=== PATIENT | male | born 1990 | race Caucasian/White ===

== ENCOUNTER 2016-06-16 07:34 | Emergency (ER) | payer OTHER ==
[2016-06-16 08:12] LABS: BASO % 0.2 % (0.2-1.2); EOS # 0.2 10_X3_uL (0.0-0.5); EOS % 1.1 % (0.8-7.0); GRAN # 8.9 10_X3_uL (1.8-5.4); GRAN % 65.4 % (34.0-67.9); HEMATOCRIT 41.8 % (40-51); HEMOGLOBIN 14.3 g/dL (13.7-17.5); LYMPH # 3.4 10_X3_uL (1.3-3.6); LYMPH % 24.6 % (21.8-53.1); MEAN CORPUSCULAR HEMOGLOBIN 29.7 pg (27.0-33.0); MEAN CORPUSCULAR HGB CONC 34.2 g/dL (32.0-36.0); MEAN CORPUSCULAR VOLUME 86.7 fL (79-92); MONO # 1.2 10_X3_uL (0.3-0.8); MONO % 8.7 % (5.3-12.2); PLATELET COUNT 244 x10_3/uL (163-337); RED BLOOD COUNT 4.82 x10_6/uL (4.6-6.1); RED CELL DISTRIBUTION WIDTH 12.5 % (11.6-14.4); WHITE BLOOD COUNT 13.6 x10_3/uL (4.2-9.1)
[2016-06-16 08:23] LABS: ALBUMIN 4.6 gm/dL (3.4-5.0); ALKALINE PHOSPHATASE 69 U/L (50-136); ALT/SGPT 20 U/L (7.53-40.17); AST/SGOT 25 U/L (6.66-35.34); BILIRUBIN,TOTAL 0.51 mg/dL (0.0-1.0); BLOOD UREA NITROGEN 16 mg/dL (7-18); CALCIUM 9.5 mg/dL (8.7-10.7); CARBON DIOXIDE 29 mmol/L (21-32); CREATININE 1.2 mg/dL (0.6-1.3); GLUCOSE,RANDOM 135 mg/dL (70-99); POTASSIUM 4.2 mmol/L (3.5-5.1); SODIUM 141 mmol/L (136-145); TOTAL PROTEIN 7.6 gm/dL (6.4-8.2)
== END 2016-06-16 12:00 | disposition home or self-care (01) ==
LOC: ER 07:34
PROVIDERS: General Practice
DX: L98.9 Disorder of the skin and subcutaneous tissue, unspecified (principal); F17.200 Nicotine dependence, unspecified, uncomplicated; F19.90 Other psychoactive substance use, unspecified, uncomplicated
CPT/HCPCS: 36415; 80053; 80307; 83605; 85025; 87040; 96374; 99070; 99283; 99283-25; J3370; J7040; J7050